=== PATIENT | male | born 1960 | race Caucasian/White ===

== ENCOUNTER 2021-04-22 09:00 | Emergency (ER) | payer BC, OTHER ==
[2021-04-22] MEDS ORDERED: KETOROLAC TROMETHAMINE 30 MG/1 ML VIAL IM ONE (09:14)
[2021-04-22] MEDS ORDERED: LIDOCAINE 5% TOPICAL PATCH TP ONE (09:15)
[2021-04-22] MEDS ORDERED: METHOCARBAMOL 500 MG TABLET PO ONE (09:15)
[2021-04-22 09:27] VITALS: TEMP 98.8; BMI 24.6
[2021-04-22] MEDS ORDERED: KETOROLAC TROMETHAMINE 30 MG/1 ML VIAL ONE (09:44)
[2021-04-22] MEDS ORDERED: METHOCARBAMOL 500 MG TABLET ONE (09:44)
[2021-04-22] MEDS ORDERED: LIDOCAINE 5% TOPICAL PATCH ONE (09:45)
[2021-04-22 10:17] VITALS: BP 199/109; PULSE 77
[2021-04-22] MEDS ORDERED: LIDOCAINE PATCH REMOVAL MC SCH (22:00)
== END 2021-04-22 10:26 | disposition home or self-care (01) ==
LOC: FER 09:00
PROC: 3E0233Z Introduction of Anti-inflammatory into Muscle, Percutaneous Approach (ICD-10-PCS; principal; 2021-04-22)
DX: M54.50 Low back pain, unspecified (principal); W10.9XXA Fall (on) (from) unspecified stairs and steps, initial encounter
CPT/HCPCS: 71101-TC-RT-FY; 99284-25